=== PATIENT | female | born 1970 | race Asian ===

== ENCOUNTER 2023-02-11 22:44 | Emergency (ER) | payer OTHER ==
[~2023-02-11] VITALS: Ht 162.6 cm; Wt 90.7 kg
[2023-02-11 23:00] VITALS: BP_SYST 119; PULSE 95; RESP 19; TEMP 98.1; O2SAT 97
[2023-02-11] MEDS ORDERED: MORPHINE 4 MG INJ. 4 MG/ML VIAL IM ONE (23:15)
[2023-02-12 01:35] VITALS: BP_SYST 125; PULSE 90; RESP 16; TEMP 98.1; O2SAT 97
== END 2023-02-12 01:35 | disposition home or self-care (01) ==
LOC: SED 22:44
DX: S43.402A Unspecified sprain of left shoulder joint, initial encounter (principal); Z79.899 Other long term (current) drug therapy; X50.9XXA Other and unspecified overexertion or strenuous movements or postures, initial encounter; Y93.89 Activity, other specified; Y92.89 Other specified places as the place of occurrence of the external cause; Y99.8 Other external cause status
CPT/HCPCS: 99285; 73200; 76376; 96372; J2270

== ENCOUNTER 2023-09-07 21:30 | Emergency (ER) | payer OTHER ==
[2023-09-08 00:01] LABS: BASOPHILS # (AUTO) 0.1 K/uL (0.0-0.2); BASOPHILS % (AUTO) 0.9 % (0.0-2.0); EOSINOPHILS # (AUTO) 0.1 K/uL (0.0-0.4); EOSINOPHILS % (AUTO) 0.6 % (0.0-4.0); HEMATOCRIT 32.8 % (36-48); HEMOGLOBIN 10.6 g/dL (12.0-16.0); LYMPHOCYTES # (AUTO) 1.8 K/uL (1.0-5.5); LYMPHOCYTES % (AUTO) 21.2 % (20.5-51.5); MEAN CORPUSCULAR HEMOGLOBIN 24 pg (27-31); MEAN CORPUSCULAR HGB CONC 32 % (32-36); MEAN CORPUSCULAR VOLUME 73 fL (79.0-98.0); MONOCYTES # (AUTO) 0.3 K/uL (0.0-1.0); MONOCYTES % (AUTO) 4.2 % (1.7-9.3); NEUTROPHILS % (AUTO) 73.1 % (40.0-70.0); PLATELET COUNT (AUTO) 424 K/uL (130-430); RED BLOOD CELL COUNT(AUTO) 4.51 MIL/uL (4.2-6.2); RED CELL DISTRIBUTION WIDTH 17.8 % (9.0-15.0); WHITE BLOOD COUNT (AUTO) 8.3 K/uL (4.8-10.8)
[2023-09-08 00:05] LABS: CALCIUM 9.6 mg/dL (8.4-11.0); CREATININE 0.75 mg/dL (0.55-1.30)
[2023-09-08] MEDS ORDERED: MECL-225 PO (00:23)
[2023-09-08 01:34] VITALS: BP_SYST 131; PULSE 85; RESP 16; TEMP 96.8; O2SAT 97
== END 2023-09-08 00:57 | disposition home or self-care (01) ==
LOC: SED 21:30
DX: H81.10 Benign paroxysmal vertigo, unspecified ear (principal); D64.9 Anemia, unspecified; R11.2 Nausea with vomiting, unspecified; Z79.899 Other long term (current) drug therapy
CPT/HCPCS: 36415; 70450-TC; 76376; 80048; 82948; 85025; 99284